=== PATIENT | female | born 1970 | race American Indian/Alaskan Native ===

== ENCOUNTER 2016-07-19 20:13 | Emergency (ER) | payer OTHER ==
[2016-07-19] MEDS ORDERED: MOTRIN PO ONE (22:05)
[2016-07-19 22:55] LABS: Basophils % (Auto) 0.4 % (0.0-1.8); Eosinophils % (Auto) 1.7 % (0.0-4.3); Hematocrit 40.3 % (30.3-42.9); Hemoglobin 13.5 gm/dl (10.1-14.3); Mean Corpuscular HGB Conc 33 % (30-34); Mean Corpuscular Hemoglobin 31 pg (28-32); Mean Corpuscular Volume 94 fl (79-97); Platelet Count 119 K/mm3 (140-440); Red Cell Distribution Width 13.9 % (13.2-15.2); White Blood Count 11.8 K/mm3 (4.5-11.0)
[2016-07-19 23:07] LABS: Anion Gap 14 mmol/L; Blood Urea Nitrogen 9 mg/dL (7-17); Calcium 8.5 mg/dL (8.4-10.2); Carbon Dioxide 28 mmol/L (22-30); Chloride 102.6 mmol/L (98-107); Creatine Kinase 362 units/L (30-135); Glucose 87 mg/dL (65-100); Potassium 3.7 mmol/L (3.6-5.0); Sodium 141 mmol/L (137-145)
--- NOTE | 2016-07-19 23:17 | Emergency Department Report ---
- General Chief complaint: Skin/Abscess/Foreign Body Stated complaint: LEG SWELLING, INSECT BITE Time Seen by Provider: 07/19/16 21:42 Source: patient Mode of arrival: Ambulatory Limitations: No Limitations - History of Present Illness Initial comments: 46-year-old female past medical history goiter presents with complaint of mild lower extremity swelling and small red areas which patient is concerned maybe bug bites in her left and right inner thighs. Patient states she has some pain and tenderness near the sites. Denies any fever or chills. Patient states that over the last day she is experiencing some mild swelling in her lower extremities. Denies any recent surgeries no history of DVT. Denies any shortness of breath no chest pain no palpitations MD complaint: insect bite/sting, lesion Onset/Timin -: days(s) Severity: moderate Severity scale (0 -10): 5 Quality: aching Consistency: constant Improves with: none Context: none Associated symptoms: denies other symptoms - Related Data Previous Rx's Medication Instructions Recorded Last Taken Type HYDROcodone/APAP 5-325 [Athelstane 1 each PO Q6HR PRN #20 tablet 09/06/15 Unknown Rx 5/325] Ibuprofen [Motrin] 600 mg PO Q8H PRN #40 tablet 09/06/15 Unknown Rx Metaxalone [Skelaxin] 800 mg PO TID #30 tablet 09/06/15 Unknown Rx Hydrochlorothiazide [Hctz] 12.5 mg PO QDAY #30 capsule 07/19/16 Unknown Rx Naproxen [Naproxen TAB] 250 mg PO BID PRN #20 tablet 07/19/16 Unknown Rx Sulfamethoxazole/Trimethoprim 1 each PO BID #14 tablet 07/19/16 Unknown Rx [Bactrim DS TAB] Allergies Allergy/AdvReac Type Severity Reaction Status Date / Time No Known Allergies Allergy Unverified 09/06/15 20:21 Abscess Boil HPI - HPI Chief Complaint: Skin/Abscess/Foreign Body Stated Complaint: LEG SWELLING, INSECT BITE Time Seen by Provider: 07/19/16 21:42 Duration: Today Location: Lower Extremity History: Yes Pain, Yes Insect Bite, No Fever, No Purulent Drainage, No Numbness , No Foreign Body, No Previous History Home Medications: Previous Rx's Medication Instructions Recorded Last Taken Type HYDROcodone/APAP 5-325 [Athelstane 1 each PO Q6HR PRN #20 tablet 09/06/15 Unknown Rx 5/325] Ibuprofen [Motrin] 600 mg PO Q8H PRN #40 tablet 09/06/15 Unknown Rx Metaxalone [Skelaxin] 800 mg PO TID #30 tablet 09/06/15 Unknown Rx Hydrochlorothiazide [Hctz] 12.5 mg PO QDAY #30 capsule 07/19/16 Unknown Rx Naproxen [Naproxen TAB] 250 mg PO BID PRN #20 tablet 07/19/16 Unknown Rx Sulfamethoxazole/Trimethoprim 1 each PO BID #14 tablet 07/19/16 Unknown Rx [Bactrim DS TAB] Allergies/Adverse Reactions: Allergies Allergy/AdvReac Type Severity Reaction Status Date / Time No Known Allergies Allergy Unverified 09/06/15 20:21 ED Review of Systems ROS: Stated complaint: LEG SWELLING, INSECT BITE Other details as noted in HPI ED Past Medical Hx - Past Medical History Previous Medical History?: No Additional medical history: goutier - Surgical History Past Surgical History?: Yes Additional Surgical History: gallbladder removed 2004, 2005 - Social History Smoking Status: Former Smoker - Medications Home Medications: Home Medications Medication Instructions Recorded Confirmed Last Taken Type HYDROcodone/APAP 5-325 [Athelstane 1 each PO Q6HR PRN #20 tablet 09/06/15 Unknown Rx 5/325] Ibuprofen [Motrin] 600 mg PO Q8H PRN #40 tablet 09/06/15 Unknown Rx Metaxalone [Skelaxin] 800 mg PO TID #30 tablet 09/06/15 Unknown Rx Hydrochlorothiazide [Hctz] 12.5 mg PO QDAY #30 capsule 07/19/16 Unknown Rx Naproxen [Naproxen TAB] 250 mg PO BID PRN #20 tablet 07/19/16 Unknown Rx Sulfamethoxazole/Trimethoprim 1 each PO BID #14 tablet 07/19/16 Unknown Rx [Bactrim DS TAB] ED Physical Exam - General Limitations: No Limitations General appearance: alert, in no apparent distress - Head Head exam: Present: atraumatic, normocephalic - Eye Eye exam: Present: normal appearance, PERRL, EOMI - ENT ENT exam: Present: mucous membranes moist - Neck Neck exam: Present: normal inspection - Respiratory Respiratory exam: Present: normal lung sounds bilaterally. Absent: respiratory distress - Cardiovascular Cardiovascular Exam: Present: regular rate, normal rhythm. Absent: systolic murmur, diastolic murmur, rubs, gallop - GI/Abdominal GI/Abdominal exam: Present: soft, normal bowel sounds - Extremities Exam Extremities exam: Present: normal inspection, full ROM - Expanded Lower Extremity Exam Right Hip exam: Present: normal inspection, full ROM Upper Leg exam: Present: erythema (small circular area of erythema possibly 2 cm in diameter) Knee exam: Present: normal inspection, full ROM Lower Leg exam: Present: tenderness (small circular area of slight erythema approximately 2 cm in diameter anterior zuleta region) Ankle exam: Present: normal inspection, full ROM Foot/Toe exam: Present: normal inspection, full ROM Neuro vascular tendon exam: Present: no vascular compromise Gait: Positive: observed and normal 1 - 2 cm area of erythema no fluctuance 2 - 2cm erythema, no fluctuance 3 - 1cm area of erythema, no fluctuance - Back Exam Back exam: Present: normal inspection, full ROM - Neurological Exam Neurological exam: Present: alert, oriented X3, CN II-XII intact, normal gait - Psychiatric Psychiatric exam: Present: normal affect, normal mood - Skin Skin exam: Present: warm, dry, intact, normal color. Absent: rash ED Course Vital Signs 07/19/16 07/19/16 20:24 22:23 Temperature 98.1 F Pulse Rate 67 Respiratory 18 20 Rate Blood Pressure 115/71 O2 Sat by Pulse 100 Oximetry ED Medical Decision Making - Lab Data Result diagrams: 07/19/16 22:25 07/19/16 22:25 - Medical Decision Making A/P: Lower extremity edema, possible bug bites 1-d-dimer negative, I examined patient with Dr. Randle and we were initially slightly concerned given patient's complaint of left-sided calf tenderness and mild leg swelling. Negative d-dimer reassuring. Wells score 0 points Low risk group for DVT. Unlikely according to Wells DVT studies. 2-patient has 3 small areas with slight erythema and tenderness she creams have been bitten by an insect of unknown type. No other lesions noticed on the legs other than some varicose veins. Will treat patient empirically with Bactrim. Marked areas using washable pen 3-low-dose hydrochlorothiazide to help with mild pedal edema patient only has very mild edema in feet bilaterally. 4-follow up with primary care doctor. I advised patient to return to the ED if she experiences any severe fever chills worsened swelling in legs 5-I advised patient to remain adequately hydrated BUN/creatinine within normal limits electrolytes within normal limits, mild leukocytosis and slight elevation in CPK likely due to mild dehydration and is able to tolerate fluids by mouth without difficulty nausea or vomiting Critical care attestation.: If time is entered above; I have spent that time in minutes in the direct care of this critically ill patient, excluding procedure time. ED Disposition Clinical Impression: Bilateral lower extremity edema Bug bites Qualifiers: Encounter type: initial encounter Qualified Code(s): W57.XXXA - Bitten or stung by nonvenomous insect and other nonvenomous arthropods, initial encounter Disposition: DISCHARGED TO HOME OR SELFCARE Is pt being admited?: No Does the pt Need Aspirin: No Condition: Stable Instructions: Insect Bite or Sting (ED), Leg Edema (ED) Additional Instructions: Patient to follow up with primary care doctor this week Prescriptions: Hydrochlorothiazide [Hctz] 12.5 mg PO QDAY #30 capsule Naproxen [Naproxen TAB] 250 mg PO BID PRN #20 tablet PRN Reason: Pain Sulfamethoxazole/Trimethoprim [Bactrim DS TAB] 1 each PO BID #14 tablet Referrals: PRIMARY MD KASH [Primary Care Provider] - 3-5 Days FREDDY RAMON MD [Staff Physician] - 3-5 Days [facility] [Outside] - 3-5 Days Time of Disposition: 23:51
[2016-07-20 00:21] VITALS: BP 120/68
== END 2016-07-20 01:36 | disposition home or self-care (01) ==
LOC: ED 20:13
DX: R60.9 Edema, unspecified (principal); Z87.891 Personal history of nicotine dependence; W57.XXXA Bitten or stung by nonvenomous insect and other nonvenomous arthropods, initial encounter; Y93.9 Activity, unspecified; Y92.9 Unspecified place or not applicable; Y99.9 Unspecified external cause status
CPT/HCPCS: 36415; 80048; 82550; 85025; 85379; 99283

== ENCOUNTER 2017-06-05 12:33 | Emergency (ER) | payer SELFPAY ==
[2017-06-05 12:49] VITALS: BP 150/93
[2017-06-05 13:23] LABS: Basophils % (Auto) 0.5 % (0.0-1.8); Eosinophils % (Auto) 1.6 % (0.0-4.3); Hematocrit 42.3 % (30.3-42.9); Hemoglobin 14.2 gm/dl (10.1-14.3); Mean Corpuscular HGB Conc 34 % (30-34); Mean Corpuscular Hemoglobin 32 pg (28-32); Mean Corpuscular Volume 94 fl (79-97); Platelet Count 121 K/mm3 (140-440); Red Blood Count 4.48 M/mm3 (3.65-5.03); Red Cell Distribution Width 14.1 % (13.2-15.2); White Blood Count 8.9 K/mm3 (4.5-11.0)
[2017-06-05 13:26] LABS: Anion Gap 16 mmol/L; BUN/Creatinine Ratio 11; Blood Urea Nitrogen 9 mg/dL (7-17); Calcium 8.6 mg/dL (8.4-10.2); Carbon Dioxide 25 mmol/L (22-30); Chloride 104.3 mmol/L (98-107); Glucose 88 mg/dL (65-100); Sodium 141 mmol/L (137-145)
[2017-06-05 13:41] LABS: Bilirubin,Urine NEG (Negative); Blood,Urine SM (Negative); Ketones,Urine NEG (Negative); Leukocyte Esterase,Urine NEG (Negative); Mucus,Urine FEW /HPF; Nitrite,Urine NEG (Negative); Protein,Urine <15 mg/dL mg/dL (Negative); Urobilinogen,Urine < 2.0 mg/dL (<2.0)
--- NOTE | 2017-06-06 15:05 | Vascular Lab Report ---
LEFT UPPER EXTREMITY VENOUS DUPLEX: REASON FOR EXAM: Swelling of the left upper extremity COMMENTS ON THE LEFT: All arm veins visualized are freely compressible without evidence of internal echogenicity. The subclavian and internal jugular veins are free of thrombus. Flow is spontaneous and phasic throughout. COMMENTS ON THE RIGHT: The subclavian and internal jugular veins are free of thrombus. IMPRESSION: No evidence of acute or chronic deep venous thrombosis in the left upper extremity.
== END 2017-06-05 21:15 | disposition left against medical advice (07) ==
LOC: ED 12:33
DX: R07.9 Chest pain, unspecified (principal); Z53.21 Procedure and treatment not carried out due to patient leaving prior to being seen by health care provider
CPT/HCPCS: 36415; 80048; 81001; 81025; 84484; 85025; 85379; 93005; 93010

== ENCOUNTER 2017-06-15 13:19 | Emergency (ER) | payer OTHER ==
[2017-06-15 13:48] VITALS: BP 122/84
[2017-06-15] MEDS ORDERED: ASPIRIN PO ONE (13:48)
[2017-06-15 14:05] LABS: Basophils # (Auto) 0.1 K/mm3 (0.0-0.1); Basophils % (Auto) 0.5 % (0.0-1.8); Eosinophils # (Auto) 0.1 K/mm3 (0.0-0.4); Hematocrit 46.7 % (30.3-42.9); Hemoglobin 15.8 gm/dl (10.1-14.3); Lymphocytes # (Auto) 2.6 K/mm3 (1.2-5.4); Lymphocytes % (Auto) 19.5 % (13.4-35.0); Mean Corpuscular HGB Conc 34 % (30-34); Mean Corpuscular Hemoglobin 32 pg (28-32); Mean Corpuscular Volume 94 fl (79-97); Monocytes # (Auto) 0.7 K/mm3 (0.0-0.8); Monocytes % (Auto) 5.5 % (0.0-7.3); Platelet Count 146 K/mm3 (140-440); Red Blood Count 4.98 M/mm3 (3.65-5.03); Red Cell Distribution Width 13.9 % (13.2-15.2)
[2017-06-15 14:23] LABS: BUN/Creatinine Ratio 16; Blood Urea Nitrogen 11 mg/dL (7-17); Calcium 8.7 mg/dL (8.4-10.2); Hemolysis Index 11
== END 2017-06-15 20:15 | disposition left against medical advice (07) ==
LOC: ED 13:19
DX: M25.512 Pain in left shoulder (principal); M79.602 Pain in left arm; R05 Cough; Z53.21 Procedure and treatment not carried out due to patient leaving prior to being seen by health care provider
CPT/HCPCS: 36415; 80048; 84484; 85025; 93005; 93010

== ENCOUNTER 2020-10-29 02:24 | Emergency (ER) | payer BC ==
[2020-10-29 02:34] VITALS: BP 147/87
--- NOTE | 2020-10-29 03:41 | Emergency Department Report ---
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 States that she has had some issues with the knee off and on thinks it may be related to arthritis. She reports no direct trauma reports no slips or falls reports no calf swelling no numbness no tingling no popliteal masses. MD Complaint: knee injury Injury: Knee: Right Type of Injury: unknown Place: home Severity: mild Improves With: immobilization Associated Symptoms: able to partially bear weight - Related Data Previous Rx's Medication Instructions Recorded Last Taken Type HYDROcodone/APAP 5-325 [Spring 1 each PO Q6HR PRN #20 tablet 09/06/15 Unknown Rx 5/325] Ibuprofen [Motrin] 600 mg PO Q8H PRN #40 tablet 09/06/15 Unknown Rx Metaxalone [Skelaxin] 800 mg PO TID #30 tablet 09/06/15 Unknown Rx Naproxen [Naproxen TAB] 250 mg PO BID PRN #20 tablet 07/19/16 Unknown Rx Sulfamethoxazole/Trimethoprim 1 each PO BID #14 tablet 07/19/16 Unknown Rx [Bactrim DS TAB] hydroCHLOROthiazide [Hctz] 12.5 mg PO QDAY #30 capsule 07/19/16 Unknown Rx predniSONE [Deltasone] 20 mg PO QDAY #5 tab 10/29/20 Unknown Rx traMADoL [Ultram] 50 mg PO Q6HR PRN #14 tablet 10/29/20 Unknown Rx Allergies Allergy/AdvReac Type Severity Reaction Status Date / Time orange Allergy Anaphylaxis Verified 10/29/20 02:28 ED Review of Systems ROS: Stated complaint: RT KNEE PAIN Other details as noted in HPI Comment: All other systems reviewed and negative ED Past Medical Hx - Past Medical History Previous Medical History?: No Additional medical history: goutier - Surgical History Hx Cholecystectomy: Yes Additional Surgical History: 2006 - Social History Smoking Status: Current Every Day Smoker - Medications Home Medications: Home Medications Medication Instructions Recorded Confirmed Last Taken Type HYDROcodone/APAP 5-325 [Spring 1 each PO Q6HR PRN #20 tablet 09/06/15 Unknown Rx 5/325] Ibuprofen [Motrin] 600 mg PO Q8H PRN #40 tablet 09/06/15 Unknown Rx Metaxalone [Skelaxin] 800 mg PO TID #30 tablet 09/06/15 Unknown Rx Naproxen [Naproxen TAB] 250 mg PO BID PRN #20 tablet 07/19/16 Unknown Rx Sulfamethoxazole/Trimethoprim 1 each PO BID #14 tablet 07/19/16 Unknown Rx [Bactrim DS TAB] hydroCHLOROthiazide [Hctz] 12.5 mg PO QDAY #30 capsule 07/19/16 Unknown Rx predniSONE [Deltasone] 20 mg PO QDAY #5 tab 10/29/20 Unknown Rx traMADoL [Ultram] 50 mg PO Q6HR PRN #14 tablet 10/29/20 Unknown Rx ED Physical Exam - General Limitations: No Limitations General appearance: alert, in no apparent distress - Head Head exam: Present: atraumatic, normocephalic - Eye Eye exam: Present: normal appearance - ENT ENT exam: Present: mucous membranes moist - Neck Neck exam: Present: normal inspection - Respiratory Respiratory exam: Present: normal lung sounds bilaterally. Absent: respiratory distress - Cardiovascular Cardiovascular Exam: Present: regular rate, normal rhythm. Absent: systolic murmur, diastolic murmur, rubs, gallop - GI/Abdominal GI/Abdominal exam: Present: soft, normal bowel sounds - Extremities Exam Extremities exam: Present: normal inspection - Expanded Lower Extremity Exam Right Knee exam: Present: tenderness, swelling, pain w/ pronation/supination, pain/laxity with valgus, pain/laxity with varus. Absent: abrasion, laceration, ecchymosis, crepidus, erythema, effusion - Back Exam Back exam: Present: normal inspection. Absent: tenderness, CVA tenderness (L), paraspinal tenderness - Neurological Exam Neurological exam: Present: alert, oriented X3, CN II-XII intact, reflexes normal. Absent: motor sensory deficit - Psychiatric Psychiatric exam: Present: normal affect, normal mood - Skin Skin exam: Present: warm, dry, intact, normal color. Absent: rash ED Course Vital Signs 10/29/20 02:30 Temperature 98.4 F Pulse Rate 75 Respiratory 16 Rate Blood Pressure 147/87 O2 Sat by Pulse 98 Oximetry ED Lower Extremity MDM - Radiology Data Radiology results: report reviewed [address] [place] [address] XRay Report Signed Patient: SILVESTRE PEREZ MR#: [id number] : 1970 Acct:[id number] Age/Sex: 50 / F ADM Date: 10/29/20 Loc: ED Attending Dr: Ordering Physician: MIMI WYMAN Date of Service: 10/29/20 Procedure(s): XR knee 3V RT Accession Number(s): [id number] cc: MIMI WYMAN Fluoro Time In Minutes: RIGHT KNEE 3 VIEWS INDICATION / CLINICAL INFORMATION: Right knee pain for 2 weeks. COMPARISON: None available. FINDINGS: BONES and JOINT(S): No acute fracture or subluxation. Mild osteoarthritis is seen along the lateral compartment. SOFT TISSUES: No significant abnormality. ADDITIONAL FINDINGS: None. IMPRESSION: 1. No acute findings. 2. Mild osteoarthritis. Signer Name: Abram Head MD Signed: 10/29/2020 3:40 AM Workstation Name: [id number] Transcribed By: MN Dictated By: Abram Head MD Electronically Authenticated By: Abram Head MD Signed Date/Time: 10/29/20339 DD/ 8 TD/TT: Print Critical care attestation.: If time is entered above; I have spent that time in minutes in the direct care of this critically ill patient, excluding procedure time. ED Disposition Clinical Impression: Knee pain, Knee effusion, right Disposition: DC- TO HOME OR SELFCARE Is pt being admited?: No Does the pt Need Aspirin: No Condition: Stable Instructions: Acute Knee Pain, Adult, Knee Effusion, How to Use Cold Therapy, [id number], Osteoarthritis Prescriptions: predniSONE [Deltasone] 20 mg PO QDAY #5 tab traMADoL [Ultram] 50 mg PO Q6HR PRN #14 tablet PRN Reason: Pain Referrals: PRIMARY MD KASH [Primary Care Provider] - 3-5 Days GABRIELE GARCIA MD [Staff Physician] - 3-5 Days
--- NOTE | 2020-10-29 03:44 | XRay Report ---
RIGHT KNEE 3 VIEWS INDICATION / CLINICAL INFORMATION: Right knee pain for 2 weeks. COMPARISON: None available. FINDINGS: BONES and JOINT(S): No acute fracture or subluxation. Mild osteoarthritis is seen along the lateral c ompartment. SOFT TISSUES: No significant abnormality. ADDITIONAL FINDINGS: None. IMPRESSION: 1. No acute findings. 2. Mild osteoarthritis. Signer Name: Abram Head MD Signed: 10/29/2020 3:40 AM Workstation Name: [id number]
== END 2020-10-29 04:30 | disposition home or self-care (01) ==
LOC: ED 02:24
DX: M25.461 Effusion, right knee (principal); F17.200 Nicotine dependence, unspecified, uncomplicated; Z98.890 Other specified postprocedural states; Z91.018 Allergy to other foods
CPT/HCPCS: 99283

== ENCOUNTER 2021-03-05 10:26 | Emergency (ER) | payer BC ==
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
[2021-03-05 13:56] VITALS: BP 109/50
== END 2021-03-05 15:50 | disposition home or self-care (01) ==
LOC: ED 10:26
DX: S92.412A Displaced fracture of proximal phalanx of left great toe, initial encounter for closed fracture (principal); S02.40DA Maxillary fracture, left side, initial encounter for closed fracture; S02.85XA Fracture of orbit, unspecified, initial encounter for closed fracture; T76.11XA Adult physical abuse, suspected, initial encounter; M19.90 Unspecified osteoarthritis, unspecified site; M10.9 Gout, unspecified; Z98.890 Other specified postprocedural states; F17.200 Nicotine dependence, unspecified, uncomplicated; Z91.018 Allergy to other foods
CPT/HCPCS: 70486; 99284